=== PATIENT | male | born 1975 | race Caucasian/White ===

== ENCOUNTER → 2018-08-06 | Outpatient (CLI) | payer OTHER ==
[~2018-08-06] MED LIST: DIAZ10; GABA300; MAGOXI400; NARCAN4 MG; ONDA4ODT; OXYC30ER; POTCHL10ER; PROM6.25SY PO; PROZAC20 MG; SPIR25; TIOT18; TRAZ150T57
== END ==
LOC: LAB 18:19 → LAB SHORT 18:19
DX: Z51.81 Encounter for therapeutic drug level monitoring (principal); G89.3 Neoplasm related pain (acute) (chronic); Z85.72 Personal history of non-Hodgkin lymphomas; Z79.899 Other long term (current) drug therapy
CPT/HCPCS: G0480

== ENCOUNTER 2018-08-20 07:49 | Day surgery (SDC) | payer OTHER ==
[~2018-08-20] VITALS: Ht 172.7 cm; Wt 72.6 kg
[~2018-08-20 07:49] MED LIST changes: -DIAZ10; +DIAZ10 PO; -GABA300; +GABA300 PO; -MAGOXI400; +MAGOXI400 PO; -OXYC30ER; +OXYC30ER PO; -POTCHL10ER; +POTCHL10ER PO; +PROMETHAZINE-P118 M1 PO; -PROZAC20 MG; +PROZAC20 MG PO; -SPIR25; +SPIR25 PO; -TIOT18; +TIOT18 INH; +ZUPLENZ8 MG PO
[2018-08-20 09:36] LABS: Hematocrit 37.4 % (37.0-53.0); Hemoglobin 11.9 g/dL (13.5-17.5); Mean Corpuscular HGB 27.7 pg (26.0-34.0); Mean Corpuscular HGB Conc 31.8 g/dL (31.5-36.5); Mean Corpuscular Volume 87 fL (80-100); Mean Platelet Volume 8.8 fL (9.1-12.4); Platelet Count 146 K/mm3 (150-400); RDW Coefficient Variation 14.3 % (11.7-14.2); RDW Standard Deviation 45.4 fL (35.1-46.3); White Blood Cell Count 4.81 K/mm3 (4.00-11.30)
[2018-08-20 09:48] LABS: Anion Gap 5 mmol/L (6-16); Blood Urea Nitrogen 15 mg/dL (8-24); Bun/Creatinine Ratio 19.4 (12.0-20.0); CO2, Blood 28 mmol/L (21-32); Calcium, Blood 8.5 mg/dL (8.5-10.1); Chloride, Blood 108 mmol/L (98-108); Creatinine, Blood 0.77 mg/dL (0.60-1.20); Glomerular Filtration Rate >60 (60-); Glucose, Blood 85 mg/dL (70-99); Potassium, Blood 3.6 mmol/L (3.5-5.5); Sodium, Blood 141 mmol/L (136-145)
--- NOTE | 2018-08-20 10:01 | NUR ---
Ambulatory in Day Surgery. Surgical site prepped with 2% Chlorhexidine cloth wipe. History, Chart, Medications and Allergies reviewed before start of procedure. Patient confirms NPO status and agrees with scheduled surgery. Lungs clear T/O to Auscultation. Pre-Op teaching done. Pt verbalizes understanding. Patient States Post-Procedure ride home has been arranged.
--- NOTE | 2018-08-20 11:39 | NUR ---
08/20/18 1139 Lisa Gonzáles 14CC INJEC OF MIXED: LIDO 1%, AND BUP 0.5% W/EPI 1:200,000 USED FOR LOCAL
--- NOTE | 2018-08-20 12:43 | NUR ---
Discharge instructions reviewed with patient. Patient verbalizes understanding. Copy given to patient to take home. Dressing to procedure site clean, dry, intact with no visible drainage, swelling, erythema or bruising noted. TOLERATING PO FOOD AND FLUIDS WELL. PAIN MEDICATIONS PROVIDED. PT HAS CALLED FOR A RIDE HOME.
[2018-08-20 13:41] LABS: Performing Lab SYMBIODX; Test Name LYMPH NODE
[2018-08-21 18:53] LABS: Result SEE PATHOTH RESULTS
== END 2018-08-20 13:01 | disposition home or self-care (01) ==
LOC: ORSCMMR 07:49 → ORD 10:30 → ORSCMMR 13:01
PROVIDERS: Surgery
PROC: 07B50ZX Excision of Right Axillary Lymphatic, Open Approach, Diagnostic (ICD-10-PCS; principal; 2018-08-20 10:30)
DX: C85.93 Non-Hodgkin lymphoma, unspecified, intra-abdominal lymph nodes (principal); R59.0 Localized enlarged lymph nodes; Z85.819 Personal history of malignant neoplasm of unspecified site of lip, oral cavity, and pharynx; J44.9 Chronic obstructive pulmonary disease, unspecified; B19.20 Unspecified viral hepatitis C without hepatic coma; K70.30 Alcoholic cirrhosis of liver without ascites; F17.210 Nicotine dependence, cigarettes, uncomplicated; Z79.899 Other long term (current) drug therapy
CPT/HCPCS: 80048; 85027; 88184; 88185; 88305; 93005; 93010; J0690; J1100; J2250; J2405; J3010; J7120

== ENCOUNTER 2018-10-01 12:28 | Day surgery (SDC) | payer OTHER ==
[~2018-10-01] VITALS: Ht 172.7 cm; Wt 83.3 kg
--- NOTE | 2018-10-01 14:02 | NUR ---
10/01/18 1402 Julissa Tobin PT DENIES PAIN FROM PROCEDURE BUT STATES HE HAS CHRONIC PAIN AND TAKES PAIN MEDICATION FOR IT.
== END 2018-10-01 14:00 | disposition home or self-care (01) ==
LOC: ORSCSDS 12:28
PROVIDERS: Student in an Organized Health Care Education/Training Program
PROC: 0DB68ZX Excision of Stomach, Via Natural or Artificial Opening Endoscopic, Diagnostic (ICD-10-PCS; principal; 2018-10-01 13:30)
DX: K74.60 Unspecified cirrhosis of liver (principal); K76.6 Portal hypertension; Z13.810 Encounter for screening for upper gastrointestinal disorder; K31.89 Other diseases of stomach and duodenum; I25.10 Atherosclerotic heart disease of native coronary artery without angina pectoris; J44.9 Chronic obstructive pulmonary disease, unspecified; Z87.891 Personal history of nicotine dependence; Z86.19 Personal history of other infectious and parasitic diseases; Z79.899 Other long term (current) drug therapy
CPT/HCPCS: 88305; J7120

== ENCOUNTER 2019-10-11 15:31 | Day surgery (SDC) | payer OTHER ==
[~2019-10-11 15:31] MED LIST changes: +ALBU3IS INH; +GABA300T24 PO; +HEPARIN 50500 UNIT/5 IV; +Klor-Con 1010 MEQ PO; +MAGNESIUM OXID500 MG PO; +MILK THISTLE140 MG PO; +PROAIR RESPICL90 MCG IA; +PROBIOTIC250 MG PO; +TRAZ100 PO; +TURMERIC 500 M1 EACH PO
[2019-10-11 17:47] LABS: International Normalized Ratio 1.09; Prothrombin Time Results 11.6 Sec (9.7-11.5)
[2019-10-11 17:53] LABS: CHOL/HDL RATIO 3.9; Cholesterol 141 mg/dL (50-200); HDL Cholesterol 36 mg/dL (>39); LDL/HDL RATIO 2.3; Low Density Lipoprotein Chol 82 mg/dL (0-110); Triglycerides 115 mg/dL (30-160); Very Low Density Lipoprot Chol 23 mg/dL (6-32)
[2019-10-13 00:10] LABS: HIV SCREEN 4TH GENERATION WRFX Non Reactive (Non Reactive)
[2019-10-15 15:09] LABS: HEPATITIS C GENOTYPE 1a (.)
== END 2019-10-11 17:21 | disposition home or self-care (01) ==
LOC: ATC 15:31
PROVIDERS: Student in an Organized Health Care Education/Training Program
DX: K74.60 Unspecified cirrhosis of liver (principal); F41.9 Anxiety disorder, unspecified; Z79.899 Other long term (current) drug therapy
CPT/HCPCS: 36593; 80061; 85610; 86317; 87389; 87902; J1642; J2997

== ENCOUNTER 2020-11-13 11:42 | Day surgery (SDC) | payer OTHER ==
[~2020-11-13] VITALS: Ht 177.8 cm; Wt 86.9 kg
[~2020-11-13 11:42] MED LIST changes: +ALBU90OI INH; +ALBUTEROL0.63 MG/3 INH; +ALDACTONE25 MG PO; +MAG-OXIDE MAGN200 MG PO; +PROMETHAZINE-C473 ML PO
[2020-11-13] MEDS ORDERED: DIAZ10 (12:04)
--- NOTE | 2020-11-13 12:12 | NUR ---
11/13/20 1212 LANDY RODRIGUEZ NURSE ACCESS THROUGH MED PORT
--- NOTE | 2020-11-13 13:52 | NUR ---
11/13/20 1352 Shruthi Negrete 2ML NACL USED FOR POLYP REMOVAL.
--- NOTE | 2020-11-13 15:04 | NUR ---
11/13/20 1504 Shruthi Negrete MEDIPORT DEACCESSED PER PROTOCOL. MEDIPORT FLUSHED WITH 10ML NACL FOLLOWED BY 5ML HEPARIN(100U/ML). BANDAID PLACED OVER SITE. NO BLEEDING OBSERVED.
== END 2020-11-13 14:30 | disposition home or self-care (01) ==
LOC: ORSCSDS 11:42
PROVIDERS: Student in an Organized Health Care Education/Training Program
PROC: 0DBL8ZX Excision of Transverse Colon, Via Natural or Artificial Opening Endoscopic, Diagnostic (ICD-10-PCS; principal; 2020-11-13 12:45)
PROC: 0DBN8ZX Excision of Sigmoid Colon, Via Natural or Artificial Opening Endoscopic, Diagnostic (ICD-10-PCS; principal; 2020-11-13 12:45)
PROC: 0DB58ZX Excision of Esophagus, Via Natural or Artificial Opening Endoscopic, Diagnostic (ICD-10-PCS; principal; 2020-11-13 12:45)
DX: Z12.11 Encounter for screening for malignant neoplasm of colon (principal); K74.60 Unspecified cirrhosis of liver; D12.3 Benign neoplasm of transverse colon; D12.5 Benign neoplasm of sigmoid colon; K76.6 Portal hypertension; K31.89 Other diseases of stomach and duodenum; K64.8 Other hemorrhoids; I10 Essential (primary) hypertension; J44.9 Chronic obstructive pulmonary disease, unspecified; Z87.891 Personal history of nicotine dependence; Z79.899 Other long term (current) drug therapy; C85.90 Non-Hodgkin lymphoma, unspecified, unspecified site
CPT/HCPCS: 88305; 88312; J1642; J2001; J2250; J2704; J7120

== ENCOUNTER 2022-01-22 08:17 | Day surgery (SDC) | payer OTHER ==
[~2022-01-22] VITALS: Ht 177.8 cm; Wt 97.6 kg
[~2022-01-22 08:17] MED LIST changes: +DIAZ10
== END 2022-01-22 12:30 | disposition home or self-care (01) ==
LOC: ORSCSDS 08:17
PROVIDERS: Student in an Organized Health Care Education/Training Program
PROC: 0DB98ZX Excision of Duodenum, Via Natural or Artificial Opening Endoscopic, Diagnostic (ICD-10-PCS; principal; 2022-01-22 09:30)
PROC: 0DB78ZX Excision of Stomach, Pylorus, Via Natural or Artificial Opening Endoscopic, Diagnostic (ICD-10-PCS; principal; 2022-01-22 09:30)
DX: K74.60 Unspecified cirrhosis of liver (principal); K29.70 Gastritis, unspecified, without bleeding; K76.6 Portal hypertension; K31.89 Other diseases of stomach and duodenum; K29.80 Duodenitis without bleeding; I10 Essential (primary) hypertension; J44.9 Chronic obstructive pulmonary disease, unspecified; Z87.891 Personal history of nicotine dependence; Z99.81 Dependence on supplemental oxygen; Z79.899 Other long term (current) drug therapy; Z85.22 Personal history of malignant neoplasm of nasal cavities, middle ear, and accessory sinuses
CPT/HCPCS: 88305; 88342; A9270; J1642; J2704; J7120

== ENCOUNTER 2022-04-10 01:37 | Day surgery (SDC) | payer OTHER | END 2022-04-10 14:52 | disposition home or self-care (01) | LOC: ATC 01:37 | DX: Z45.2 Encounter for adjustment and management of vascular access device (principal); C11.9 Malignant neoplasm of nasopharynx, unspecified; R59.0 Localized enlarged lymph nodes; E11.40 Type 2 diabetes mellitus with diabetic neuropathy, unspecified; Z87.891 Personal history of nicotine dependence; D72.820 Lymphocytosis (symptomatic) | CPT/HCPCS: J1642 ==

== ENCOUNTER 2022-06-19 02:29 | Day surgery (SDC) | payer OTHER | END 2022-06-19 14:31 | disposition home or self-care (01) | LOC: ATC 02:29 | DX: C11.9 Malignant neoplasm of nasopharynx, unspecified (principal); R59.0 Localized enlarged lymph nodes; Z87.891 Personal history of nicotine dependence; K74.60 Unspecified cirrhosis of liver; F11.20 Opioid dependence, uncomplicated; Z86.16 Personal history of COVID-19 | CPT/HCPCS: J1642 ==

== ENCOUNTER 2022-06-26 02:04 | Day surgery (SDC) | payer OTHER ==
[2022-06-26 16:22] LABS: BASOPHILS ABSOLUTE AUTO 0.06 K/mm3 (0.00-0.23); BASOPHILS PERCENT AUTO 1 % (0-2); EOSINOPHILS ABSOLUTE AUTO 0.12 K/mm3 (0.00-0.68); EOSINOPHILS PERCENT AUTO 2 % (0-6); Hematocrit 38.5 % (37.0-53.0); Hemoglobin 12.5 g/dL (13.5-17.5); IMMATURE GRAN ABSOLUTE AUTO 0.01 K/mm3 (0.00-0.10); IMMATURE GRAN PERCENT AUTO 0 % (0-1); LYMPHOCYTES ABSOLUTE AUTO 1.94 K/mm3 (0.84-5.20); LYMPHOCYTES PERCENT AUTO 33 % (21-46); MONOCYTES ABSOLUTE AUTO 0.42 K/mm3 (0.16-1.47); MONOCYTES PERCENT AUTO 7 % (4-13); Mean Corpuscular HGB 28.3 pg (26.0-34.0); Mean Corpuscular HGB Conc 32.5 g/dL (31.5-36.5); Mean Corpuscular Volume 87 fL (80-100); Mean Platelet Volume 9.1 fL (9.1-12.4); NEUTROPHILS ABSOLUTE AUTO 3.27 K/mm3 (1.96-9.15); NEUTROPHILS PERCENT AUTO 56 % (41-73); Platelet Count 197 K/mm3 (150-400); RDW Coefficient Variation 13.2 % (11.7-14.2); RDW Standard Deviation 42.1 fL (35.1-46.3); Red Blood Cell Count 4.42 M/mm3 (4.30-5.90); White Blood Cell Count 5.82 K/mm3 (4.00-11.30)
[2022-06-26 16:54] LABS: Albumin, Blood 4.1 g/dL (3.4-5.0); Albumin/Globulin Ratio 1.1 (0.8-1.8); Bilirubin, Total 0.4 mg/dL (0.1-1.0); Bun/Creatinine Ratio 7.7 (12.0-20.0); Creatinine, Blood 0.91 mg/dL (0.60-1.20); Globulin, Blood 3.7 g/dL (2.2-4.0); Potassium, Blood 3.8 mmol/L (3.5-5.5); Total Protein, Blood 7.8 g/dL (6.4-8.2)
== END 2022-06-26 15:12 | disposition home or self-care (01) ==
LOC: ATC 02:04
PROVIDERS: Nurse Practitioner Family
DX: C11.9 Malignant neoplasm of nasopharynx, unspecified (principal); R59.0 Localized enlarged lymph nodes; Z87.891 Personal history of nicotine dependence; G62.9 Polyneuropathy, unspecified
CPT/HCPCS: 36591; 80053; 82105; 85025; J1642

== ENCOUNTER 2022-09-06 01:53 | Day surgery (SDC) | payer OTHER ==
[2022-09-06 16:37] LABS: BASOPHILS ABSOLUTE AUTO 0.04 K/mm3 (0.00-0.23); BASOPHILS PERCENT AUTO 1 % (0-2); EOSINOPHILS ABSOLUTE AUTO 0.22 K/mm3 (0.00-0.68); EOSINOPHILS PERCENT AUTO 3 % (0-6); Hematocrit 38.6 % (37.0-53.0); Hemoglobin 12.9 g/dL (13.5-17.5); IMMATURE GRAN ABSOLUTE AUTO 0.03 K/mm3 (0.00-0.10); IMMATURE GRAN PERCENT AUTO 0 % (0-1); LYMPHOCYTES PERCENT AUTO 23 % (21-46); MONOCYTES ABSOLUTE AUTO 0.34 K/mm3 (0.16-1.47); MONOCYTES PERCENT AUTO 4 % (4-13); Mean Corpuscular HGB 28.7 pg (26.0-34.0); Mean Corpuscular HGB Conc 33.4 g/dL (31.5-36.5); Mean Corpuscular Volume 86 fL (80-100); Mean Platelet Volume 8.5 fL (9.1-12.4); NEUTROPHILS ABSOLUTE AUTO 5.38 K/mm3 (1.96-9.15); NEUTROPHILS PERCENT AUTO 69 % (41-73); Platelet Count 205 K/mm3 (150-400); RDW Coefficient Variation 12.8 % (11.7-14.2); RDW Standard Deviation 39.5 fL (35.1-46.3); Red Blood Cell Count 4.49 M/mm3 (4.30-5.90); White Blood Cell Count 7.81 K/mm3 (4.00-11.30)
[2022-09-06 16:50] LABS: International Normalized Ratio 1.11; Prothrombin Time Results 11.6 Sec (9.7-11.5)
== END 2022-09-06 16:26 | disposition home or self-care (01) ==
LOC: ATC 01:53
PROVIDERS: Student in an Organized Health Care Education/Training Program
DX: K74.60 Unspecified cirrhosis of liver (principal)
CPT/HCPCS: 85025; 85610; J1642

== ENCOUNTER 2023-01-10 02:42 | Day surgery (SDC) | payer OTHER ==
[2023-01-10 16:14] VITALS: BP 125/79
[2023-01-10 16:33] LABS: Hematocrit 38.7 % (37.0-53.0); Hemoglobin 12.9 g/dL (13.5-17.5); Mean Corpuscular HGB 29.3 pg (26.0-34.0); Mean Corpuscular HGB Conc 33.3 g/dL (31.5-36.5); Mean Corpuscular Volume 88 fL (80-100); Mean Platelet Volume 8.5 fL (9.1-12.4); Platelet Count 201 K/mm3 (150-400); RDW Coefficient Variation 12.8 % (11.7-14.2); RDW Standard Deviation 41.5 fL (35.1-46.3); White Blood Cell Count 5.56 K/mm3 (4.00-11.30)
[2023-01-10] MEDS ORDERED: FUROSEMIDE20 MG (16:39)
[2023-01-10] MEDS ORDERED: K-Dur10 MEQ PO (16:39)
[2023-01-10 16:51] LABS: Albumin, Blood 4.1 g/dL (3.4-5.0); Albumin/Globulin Ratio 1.1 (0.8-1.8); Bilirubin, Total 0.3 mg/dL (0.1-1.0); Bun/Creatinine Ratio 9.4 (12.0-20.0); Calcium, Blood 9.3 mg/dL (8.5-10.1); Creatinine, Blood 1.06 mg/dL (0.60-1.20); Globulin, Blood 3.8 g/dL (2.2-4.0); Potassium, Blood 3.6 mmol/L (3.5-5.5); Total Protein, Blood 7.9 g/dL (6.4-8.2)
[2023-01-10 16:56] LABS: International Normalized Ratio 1.04; Prothrombin Time Results 10.9 Sec (9.7-11.5)
[2023-01-10 17:06] LABS: BASOPHILS ABSOLUTE MAN 0.05 K/mm3 (0.00-0.23); BASOPHILS PERCENT MAN 1 % (0-2); EOSINOPHILS ABSOLUTE MAN 0.11 K/mm3 (0.00-0.68); EOSINOPHILS PERCENT MAN 2 % (0-6); LYMPHOCYTES PERCENT MAN 27 % (21-46); MONOCYTES PERCENT MAN 9 % (4-13); NEUTROPHILS ABSOLUTE MAN 3.39 K/mm3 (1.96-9.15); SEG NEUTROPHILS PERCENT MAN 61 % (41-73); TOTAL CELLS COUNTED 100
== END 2023-01-10 16:21 | disposition home or self-care (01) ==
LOC: ATC 02:42
PROVIDERS: Student in an Organized Health Care Education/Training Program
DX: K74.60 Unspecified cirrhosis of liver (principal); J44.9 Chronic obstructive pulmonary disease, unspecified; I10 Essential (primary) hypertension; Z87.891 Personal history of nicotine dependence; B18.2 Chronic viral hepatitis C
CPT/HCPCS: 36591; 80053; 82105; 85007; 85027; 85610; J1642

== ENCOUNTER 2023-01-17 03:13 | Day surgery (SDC) | payer OTHER ==
[~2023-01-17 03:13] MED LIST changes: +FUROSEMIDE20 MG; +K-Dur10 MEQ PO
[2023-01-17] MEDS ORDERED: DIAZEPAM10 MG PO (14:16)
[2023-01-17 14:17] VITALS: BP 99/89
[2023-01-17 15:30] LABS: Alanine Aminotransfer (ALT/SGP 58 U/L (12-78); Albumin, Blood 4.1 g/dL (3.4-5.0); Alk Phos 63 U/L (50-136); Anion Gap 4 mmol/L (6-16); Aspartate Aminotrans (AST/SGOT 33 U/L (12-37); Bilirubin, Total 0.3 mg/dL (0.1-1.0); Blood Urea Nitrogen 12 mg/dL (8-24); Bun/Creatinine Ratio 12.7 (12.0-20.0); CHOL/HDL RATIO 4.4; CO2, Blood 27 mmol/L (21-32); Calcium, Blood 8.9 mg/dL (8.5-10.1); Chloride, Blood 107 mmol/L (98-108); Cholesterol 188 mg/dL (50-200); Creatinine, Blood 0.94 mg/dL (0.60-1.20); Free Thyroxine 0.83 ng/dL (0.70-1.60); Glomerular Filtration Rate 100 (60-); Glucose, Blood 104 mg/dL (70-99); HDL Cholesterol 43 mg/dL (>39); LDL/HDL RATIO 2.9; Low Density Lipoprotein Chol 124 mg/dL (0-110); Potassium, Blood 4.1 mmol/L (3.5-5.5); Sodium, Blood 138 mmol/L (136-145); Total Protein, Blood 8.1 g/dL (6.4-8.2); Triglycerides 103 mg/dL (30-160); Very Low Density Lipoprot Chol 20 mg/dL (6-32)
[2023-01-17 15:33] LABS: Triiodothyronine, Free 2.62 pg/mL (2.18-3.98)
== END 2023-01-17 14:30 | disposition home or self-care (01) ==
LOC: ATC 03:13
PROVIDERS: Registered Nurse
DX: L65.9 Nonscarring hair loss, unspecified (principal); R68.89 Other general symptoms and signs; J44.9 Chronic obstructive pulmonary disease, unspecified; I10 Essential (primary) hypertension; Z87.891 Personal history of nicotine dependence; K74.60 Unspecified cirrhosis of liver; B18.2 Chronic viral hepatitis C
CPT/HCPCS: 36591; 80053; 80061; 83036; 84439; 84443; 84481; J1642

== ENCOUNTER 2023-01-31 10:04 | Day surgery (SDC) | payer OTHER ==
[~2023-01-31] VITALS: Ht 172.7 cm; Wt 89.6 kg
[~2023-01-31 10:04] MED LIST changes: +DIAZEPAM10 MG PO; +LEVSOD25 PO
[2023-01-31] MEDS ORDERED: OXYC30ER PO (10:46)
[2023-01-31] MEDS ORDERED: ALBU2.5V5 INH (10:49)
--- NOTE | 2023-01-31 12:26 | NUR ---
01/31/23 [address] ANNE, SEE ANESTHESIA RECORDS.
[2023-01-31 13:15] VITALS: BP 136/88
[2023-01-31 13:33] VITALS: BP 116/70
--- NOTE | 2023-01-31 13:52 | NUR ---
DISCHARGE SUMMARY PT A&OX4, VSS/RA, KRISTIAN PO, DENIES PAIN/DENIES NEED TO VOID, PORT DEACCESSED BY LINNETTE ZHAO. DC INS PROVIDED. PT REP UNDERSTANDING THOSE INSTRUCTIONS. LEFT VIA WC WITH RN, TO GO HOME WITH AUNT/BRIDGE INSPECTOR/WILMAN, WITH ALL PERSONAL POSSESSIONS INCLUDING DC PACKET.
== END 2023-01-31 22:51 | disposition home or self-care (01) ==
LOC: ORSCMMR 10:04 → ORD 11:00 → ORSCMMR 11:15 → ORD 11:15 → ORSCMMR 22:51
PROVIDERS: Student in an Organized Health Care Education/Training Program
PROC: 0DBN8ZX Excision of Sigmoid Colon, Via Natural or Artificial Opening Endoscopic, Diagnostic (ICD-10-PCS; principal; 2023-01-31 12:00)
DX: Z12.11 Encounter for screening for malignant neoplasm of colon (principal); Z86.010 Personal history of colon polyps; K63.5 Polyp of colon; K64.8 Other hemorrhoids; J44.9 Chronic obstructive pulmonary disease, unspecified; Z86.19 Personal history of other infectious and parasitic diseases; K74.60 Unspecified cirrhosis of liver; K21.9 Gastro-esophageal reflux disease without esophagitis; F32.A Depression, unspecified; G47.33 Obstructive sleep apnea (adult) (pediatric); Z87.891 Personal history of nicotine dependence; Z79.899 Other long term (current) drug therapy
CPT/HCPCS: 88305; J1642; J2704; J7120

== ENCOUNTER 2024-04-22 01:01 | Day surgery (SDC) | payer OTHER ==
[~2024-04-22 01:01] MED LIST changes: +ALBU2.5V5 INH
[2024-04-22 14:29] VITALS: BP 126/82
== END 2024-04-22 14:37 | disposition home or self-care (01) ==
LOC: ATC 01:01
DX: Z45.2 Encounter for adjustment and management of vascular access device (principal); F41.1 Generalized anxiety disorder; G62.0 Drug-induced polyneuropathy; M47.816 Spondylosis without myelopathy or radiculopathy, lumbar region; M50.31 Other cervical disc degeneration, high cervical region; M41.24 Other idiopathic scoliosis, thoracic region; J43.2 Centrilobular emphysema; I25.2 Old myocardial infarction; Z79.891 Long term (current) use of opiate analgesic; Z87.891 Personal history of nicotine dependence; Z79.899 Other long term (current) drug therapy
CPT/HCPCS: 96523; J1642

== ENCOUNTER 2024-10-04 00:32 | Day surgery (SDC) | payer OTHER ==
[2024-10-04] MEDS ORDERED: Alteplase Recombinant 2 MG / Vial IV PRN (07:00)
[2024-10-04 16:27] VITALS: BP 125/87
[2024-10-04 16:53] LABS: BASOPHILS ABSOLUTE AUTO 0.03 K/mm3 (0.00-0.23); BASOPHILS PERCENT AUTO 0 % (0-2); EOSINOPHILS ABSOLUTE AUTO 0.15 K/mm3 (0.00-0.68); EOSINOPHILS PERCENT AUTO 2 % (0-6); Hemoglobin 12.7 g/dL (13.5-17.5); IMMATURE GRAN ABSOLUTE AUTO 0.02 K/mm3 (0.00-0.10); IMMATURE GRAN PERCENT AUTO 0 % (0-1); LYMPHOCYTES ABSOLUTE AUTO 1.56 K/mm3 (0.84-5.20); LYMPHOCYTES PERCENT AUTO 23 % (21-46); MONOCYTES ABSOLUTE AUTO 0.31 K/mm3 (0.16-1.47); MONOCYTES PERCENT AUTO 5 % (4-13); Mean Corpuscular HGB 28.4 pg (26.0-34.0); Mean Corpuscular HGB Conc 33.4 g/dL (31.5-36.5); Mean Corpuscular Volume 85 fL (80-100); Mean Platelet Volume 8.3 fL (9.1-12.4); NEUTROPHILS ABSOLUTE AUTO 4.84 K/mm3 (1.96-9.15); NEUTROPHILS PERCENT AUTO 70 % (41-73); Platelet Count 219 K/mm3 (150-400); RDW Coefficient Variation 12.5 % (11.7-14.2); RDW Standard Deviation 38.4 fL (35.1-46.3); Red Blood Cell Count 4.47 M/mm3 (4.30-5.90); White Blood Cell Count 6.91 K/mm3 (4.00-11.30)
[2024-10-04 17:08] LABS: International Normalized Ratio 1.05; Prothrombin Time Results 11.2 Sec (9.7-11.5)
[2024-10-04 17:30] LABS: Albumin, Blood 3.7 g/dL (3.4-5.0); Albumin/Globulin Ratio 0.8 (0.8-1.8); Bilirubin, Total 0.4 mg/dL (0.1-1.0); Bun/Creatinine Ratio 9.8 (12.0-20.0); Calcium, Blood 9.2 mg/dL (8.5-10.1); Creatinine, Blood 0.82 mg/dL (0.60-1.20); Globulin, Blood 4.4 g/dL (2.2-4.0); Potassium, Blood 3.9 mmol/L (3.5-5.5); Total Protein, Blood 8.1 g/dL (6.4-8.2)
== END 2024-10-04 16:43 | disposition home or self-care (01) ==
LOC: ATC 00:32
PROVIDERS: Nurse Practitioner Family
DX: K74.60 Unspecified cirrhosis of liver (principal); J44.9 Chronic obstructive pulmonary disease, unspecified; Z87.891 Personal history of nicotine dependence; Z79.899 Other long term (current) drug therapy
CPT/HCPCS: 36591; 80053; 82105; 85025; 85610; J1642

== ENCOUNTER 2024-11-02 00:16 | Day surgery (SDC) | payer OTHER ==
[2024-11-02 16:22] VITALS: BP 101/79
== END 2024-11-02 16:26 | disposition home or self-care (01) ==
LOC: ATC 00:16
DX: K74.60 Unspecified cirrhosis of liver (principal); J44.9 Chronic obstructive pulmonary disease, unspecified; Z87.891 Personal history of nicotine dependence; Z79.890 Hormone replacement therapy; Z79.899 Other long term (current) drug therapy
CPT/HCPCS: 96523; J1642

== ENCOUNTER 2024-12-10 03:11 | Day surgery (SDC) | payer OTHER ==
[2024-12-10 16:35] VITALS: BP 139/90
== END 2024-12-10 16:45 | disposition home or self-care (01) ==
LOC: ATC 03:11
DX: Z45.2 Encounter for adjustment and management of vascular access device (principal); G89.3 Neoplasm related pain (acute) (chronic); G62.0 Drug-induced polyneuropathy; J43.2 Centrilobular emphysema; Z79.891 Long term (current) use of opiate analgesic; Z87.891 Personal history of nicotine dependence
CPT/HCPCS: 96523; J1642

== ENCOUNTER 2025-03-18 08:56 | Day surgery (SDC) | payer OTHER ==
[~2025-03-18] VITALS: Ht 175.3 cm; Wt 89.1 kg
[2025-03-18] MEDS ORDERED: Benzocaine Oral Spray 0.5ML UD ONE (09:25)
[2025-03-18 10:46] VITALS: BP 113/82
== END 2025-03-18 10:42 | disposition home or self-care (01) ==
LOC: ORSCSDS 08:56
PROVIDERS: Internal Medicine Gastroenterology
PROC: 0DJ08ZZ Inspection of Upper Intestinal Tract, Via Natural or Artificial Opening Endoscopic (ICD-10-PCS; principal; 2025-03-18 10:15)
DX: K74.60 Unspecified cirrhosis of liver (principal); R13.10 Dysphagia, unspecified; R12 Heartburn; Z86.19 Personal history of other infectious and parasitic diseases; Z85.72 Personal history of non-Hodgkin lymphomas; Z85.818 Personal history of malignant neoplasm of other sites of lip, oral cavity, and pharynx; F32.A Depression, unspecified; Z86.0101 Personal history of adenomatous and serrated colon polyps; J44.89 Other specified chronic obstructive pulmonary disease; I10 Essential (primary) hypertension; Z87.891 Personal history of nicotine dependence; Z79.899 Other long term (current) drug therapy
CPT/HCPCS: A9270; J2704; J7120

== ENCOUNTER 2025-03-24 14:10 | Day surgery (SDC) | payer OTHER ==
[2025-03-24 15:48] VITALS: BP 111/68
[2025-03-24 16:28] LABS: BASOPHILS ABSOLUTE AUTO 0.04 K/mm3 (0.00-0.23); BASOPHILS PERCENT AUTO 1 % (0-2); EOSINOPHILS ABSOLUTE AUTO 0.13 K/mm3 (0.00-0.68); EOSINOPHILS PERCENT AUTO 2 % (0-6); Hematocrit 40.5 % (37.0-53.0); Hemoglobin 13.1 g/dL (13.5-17.5); IMMATURE GRAN ABSOLUTE AUTO 0.02 K/mm3 (0.00-0.10); IMMATURE GRAN PERCENT AUTO 0 % (0-1); LYMPHOCYTES ABSOLUTE AUTO 1.34 K/mm3 (0.84-5.20); LYMPHOCYTES PERCENT AUTO 18 % (21-46); MONOCYTES ABSOLUTE AUTO 0.32 K/mm3 (0.16-1.47); MONOCYTES PERCENT AUTO 4 % (4-13); Mean Corpuscular HGB Conc 32.3 g/dL (31.5-36.5); Mean Corpuscular Volume 87 fL (80-100); NEUTROPHILS ABSOLUTE AUTO 5.71 K/mm3 (1.96-9.15); NEUTROPHILS PERCENT AUTO 76 % (41-73); NRBC ABSOLUTE 0.00 K/mm3 (0.00-0.02); NRBC Auto 0.0 /100 WBC (0.0-0.2); Platelet Count 199 K/mm3 (150-400); RDW Coefficient Variation 12.7 % (11.7-14.2); RDW Standard Deviation 40.6 fL (35.1-46.3)
[2025-03-24 16:54] LABS: Alanine Aminotransfer (ALT/SGP 36.0 U/L (12-78); Albumin, Blood 3.6 g/dL (3.4-5.0); Albumin/Globulin Ratio 0.9 (0.8-1.8); Anion Gap 6.0 mmol/L (3-11); Aspartate Aminotrans (AST/SGOT 26.0 U/L (12-37); Bilirubin, Total 0.4 mg/dL (0.1-1.0); Blood Urea Nitrogen 7.0 mg/dL (8-24); CO2, Blood 29.0 mmol/L (21-32); Calcium, Blood 9.0 mg/dL (8.5-10.1); Chloride, Blood 103.0 mmol/L (98-108); Creatinine, Blood 0.87 mg/dL (0.60-1.20); Globulin, Blood 4.0 g/dL (2.2-4.0); Glucose, Blood 95.0 mg/dL (70-99); Potassium, Blood 3.9 mmol/L (3.5-5.5); Sodium, Blood 134.0 mmol/L (136-145); Total Protein, Blood 7.6 g/dL (6.4-8.2)
== END 2025-03-24 15:57 | disposition home or self-care (01) ==
LOC: ATC 14:10
PROVIDERS: Nurse Practitioner Family
DX: Z45.2 Encounter for adjustment and management of vascular access device (principal); G89.3 Neoplasm related pain (acute) (chronic); G62.0 Drug-induced polyneuropathy; M47.816 Spondylosis without myelopathy or radiculopathy, lumbar region; M50.31 Other cervical disc degeneration, high cervical region; M41.24 Other idiopathic scoliosis, thoracic region; J41.1 Mucopurulent chronic bronchitis; J43.2 Centrilobular emphysema; M54.9 Dorsalgia, unspecified; I25.2 Old myocardial infarction; Z85.72 Personal history of non-Hodgkin lymphomas; Z86.0102 Personal history of hyperplastic colon polyps; Z87.891 Personal history of nicotine dependence; Z79.890 Hormone replacement therapy; Z79.899 Other long term (current) drug therapy
CPT/HCPCS: 36591; 80053; 82105; 85025; J1642

== ENCOUNTER 2025-04-26 02:13 | Day surgery (SDC) | payer OTHER ==
[2025-04-26 15:50] VITALS: BP 141/82
== END 2025-04-26 15:51 | disposition home or self-care (01) ==
LOC: ATC 02:13
DX: Z45.2 Encounter for adjustment and management of vascular access device (principal); G89.3 Neoplasm related pain (acute) (chronic); G62.0 Drug-induced polyneuropathy; M50.31 Other cervical disc degeneration, high cervical region; F41.1 Generalized anxiety disorder; J43.2 Centrilobular emphysema; K74.60 Unspecified cirrhosis of liver; B18.2 Chronic viral hepatitis C; K21.9 Gastro-esophageal reflux disease without esophagitis; E06.3 Autoimmune thyroiditis; I25.2 Old myocardial infarction; Z87.891 Personal history of nicotine dependence; Z79.890 Hormone replacement therapy; Z79.891 Long term (current) use of opiate analgesic; Z79.899 Other long term (current) drug therapy
CPT/HCPCS: 96523; J1642